=== PATIENT | female | born 1960 | race Caucasian/White ===

== ENCOUNTER 2020-06-01 13:22 | Outpatient (CLI) | payer OTHER | END 2020-06-01 13:23 | disposition home or self-care (01) | LOC: CSHRAD 13:22 | PROVIDERS: ATTEND Family Medicine | DX: M46.1 Sacroiliitis, not elsewhere classified (principal); M54.5 Low back pain; M25.551 Pain in right hip; M19.09 Primary osteoarthritis, other specified site; M47.816 Spondylosis without myelopathy or radiculopathy, lumbar region | CPT/HCPCS: 72100; 72202 ==

== ENCOUNTER 2020-12-26 10:13 | Day surgery (SDC) | payer OTHER ==
[2020-12-22 14:08] VITALS: BMI 31.3
[2020-12-26] MEDS ORDERED: Lidocaine 1% MPF 2 ML VIAL ONE (10:14)
[2020-12-26] MEDS ORDERED: PROPOFOL 20 ML ONE ×3 (11:11→11:43)
[2020-12-26] MEDS ORDERED: Glycopyrrolate 0.2 MG/ML 5 ML SYRINGE ONE (11:44)
== END 2020-12-26 12:50 | disposition home or self-care (01) ==
LOC: CSHSDC 10:13
PROVIDERS: ATTEND Internal Medicine Gastroenterology
PROC: 0DB98ZZ Excision of Duodenum, Via Natural or Artificial Opening Endoscopic (ICD-10-PCS; principal; 2020-12-26)
PROC: 0DJD8ZZ Inspection of Lower Intestinal Tract, Via Natural or Artificial Opening Endoscopic (ICD-10-PCS; principal; 2020-12-26)
DX: R10.9 Unspecified abdominal pain (principal); R19.7 Diarrhea, unspecified; K64.9 Unspecified hemorrhoids; K21.9 Gastro-esophageal reflux disease without esophagitis; K58.9 Irritable bowel syndrome, unspecified; Z79.899 Other long term (current) drug therapy
CPT/HCPCS: 88305; J2704